=== PATIENT | male | born 1975 | race Caucasian/White ===

== ENCOUNTER 2024-10-27 00:56 | Emergency (ER) | payer SELFPAY ==
[~2024-10-27] VITALS: Ht 180.3 cm; Wt 97.5 kg
[2024-10-27] MEDS ORDERED: IBUP-1955 PO (02:08)
[2024-10-27] MEDS: IBUPROFEN 800 MG TABLET PO ONE (02:16)
[2024-10-27] MEDS ORDERED: IBUPROFEN 800 MG TABLET ONE (02:17)
[2024-10-27 02:57] VITALS: BP 130/89; O2SAT 99
== END 2024-10-27 02:58 | disposition home or self-care (01) ==
LOC: ER 01:10
DX: S80.812A Abrasion, left lower leg, initial encounter (principal); M79.672 Pain in left foot; F41.9 Anxiety disorder, unspecified; F19.10 Other psychoactive substance abuse, uncomplicated; F12.90 Cannabis use, unspecified, uncomplicated; Z59.00 Homelessness unspecified; X58.XXXA Exposure to other specified factors, initial encounter; Y93.89 Activity, other specified; Y92.89 Other specified places as the place of occurrence of the external cause; Y99.8 Other external cause status
CPT/HCPCS: A4606; A4663

== ENCOUNTER 2024-11-06 01:00 | Emergency (ER) | payer MEDICARE ==
[~2024-11-06] VITALS: Ht 180.3 cm; Wt 97.5 kg
[~2024-11-06 01:00] MED LIST: IBUP-1955 PO
[2024-11-06 01:57] LABS: PLATELET COUNT (AUTO) 231 K/uL (152-348); RED BLOOD CELL COUNT(AUTO) 5.51 MIL/uL (4.06-5.63); RED CELL DISTRIBUTION WIDTH 12.9 % (12.1-16.2); WHITE BLOOD COUNT (AUTO) 14.2 K/uL (3.6-10.2)
[2024-11-06 02:09] LABS: CREATININE 1.2 mg/dL (0.6-1.3); SODIUM SERUM 142 mmol/L (136-145); UREA NITROGEN, BLOOD 23 mg/dL (7-18)
[2024-11-06 02:12] LABS: ETHANOL < 3 MG/DL (0-10)
[2024-11-06] MEDS ORDERED: HALOPERIDOL LACTATE 5 MG/1 ML VIAL ONE (07:34)
[2024-11-06] MEDS: HALOPERIDOL LACTATE 5 MG/1 ML VIAL IV ONE (07:37)
[2024-11-06] MEDS ORDERED: diphenhydrAMINE 50 MG/1 ML VIAL ONE (07:39)
[2024-11-06] MEDS ORDERED: LORAZEPAM 2 MG/1 ML VIAL ONE (07:39)
[2024-11-06] MEDS: LORAZEPAM 2 MG/1 ML VIAL IV ONE (07:46)
[2024-11-06] MEDS: diphenhydrAMINE 50 MG/1 ML VIAL IV ONE (07:46)
[2024-11-06] MEDS: IV NORMAL SALINE 500 ML BAG IV ONE (08:04)
[2024-11-06] MEDS ORDERED: LORA-259 PO (09:32)
[2024-11-06 09:45] LABS: *BILIRUBIN,URIN NEGATIVE (NEGATIVE); *BLOOD, URINE NEGATIVE (NEGATIVE); *CLARITY,URINE CLEAR (CLEAR); *COLOR,URINE YELLOW (YELLOW); *KETONES,URINE 2+ (NEGATIVE); *PROTEIN,URINE NEGATIVE (NEGATIVE); *UROBILINOGEN,URINE 0.2 E.U./dl (NORMAL); LEUKOCYTE ESTERASE ,URINE NEGATIVE (NEGATIVE); NITRITE, URINE NEGATIVE (NEGATIVE); UGLUCOSE NEGATIVE (NEGATIVE)
[2024-11-06 10:18] LABS: *AMPHETAMINE, URINE NEGATIVE (NEGATIVE); *BARBITURATE, URINE NEGATIVE (NEGATIVE); *BENZODIAZEPINE, URINE NEGATIVE (NEGATIVE); *CANNABINOID, URINE POSITIVE (NEGATIVE); *COCCAINE, URINE NEGATIVE (NEGATIVE); *OPIATE, URINE NEGATIVE (NEGATIVE); *PHENCYCLIDINE SCREEN,URINE NEGATIVE (NEGATIVE); FENTANYL, URINE NEGATIVE (NEGATIVE)
[2024-11-06] MEDS ORDERED: OLANZAPINE 10 MG VIAL IM ONE (12:12)
[2024-11-06] MEDS: OLANZAPINE 10 MG VIAL IM ONE (12:15)
[2024-11-06 13:45] VITALS: BP 133/75; O2SAT 96
== END 2024-11-06 13:57 ==
LOC: ER 01:03
DX: R45.851 Suicidal ideations (principal); F23 Brief psychotic disorder; F12.90 Cannabis use, unspecified, uncomplicated; F41.9 Anxiety disorder, unspecified; F19.10 Other psychoactive substance abuse, uncomplicated; F32.A Depression, unspecified; Z59.00 Homelessness unspecified; Z79.899 Other long term (current) drug therapy; Z20.822 Contact with and (suspected) exposure to COVID-19
CPT/HCPCS: 80048; 81001; 85025; 87426; 36415; 99285; 96361; 96374; 96375; 96372; 80299; 80320; 80307; J1200; J1630; J2060; J7040; A4606; A4663; G0480; J2358